=== PATIENT | female | born 1955 | race Caucasian/White ===

== ENCOUNTER 2017-06-28 15:48 | Emergency (ER) | payer BC ==
[~2017-06-28] VITALS: Ht 152.4 cm; Wt 86.2 kg
[2017-06-28 15:56] VITALS: BP 165/84
[2017-06-28] MEDS ORDERED: LIDOCAINE 1% INJ 50 ML MDV IJ ONE (16:10)
[2017-06-28] MEDS ORDERED: HYDROCODONE/APAP 5/325MG 1 EACH TABLET ONE (16:27)
[2017-06-28] MEDS ORDERED: LIDOCAINE 1%-EPI 1:100,000 20 ML VIAL ONE (16:27)
[2017-06-28] MEDS ORDERED: TDAP [DIPH/PERTUSSIS/TET] 0.5 ML VIAL IM ONE ×2 (16:28→16:30)
[2017-06-28] MEDS ORDERED: LIDOCAINE 1%-EPI 1:100,000 20 ML VIAL TP ONE (16:30)
[2017-06-28] MEDS ORDERED: HYDROCODONE/APAP 5/325MG 1 EACH TABLET PO ONE (16:30)
== END 2017-06-28 17:46 | disposition home or self-care (01) ==
LOC: ER 15:50
DX: S81.811A Laceration without foreign body, right lower leg, initial encounter (principal); M06.9 Rheumatoid arthritis, unspecified; D89.9 Disorder involving the immune mechanism, unspecified; W45.8XXA Other foreign body or object entering through skin, initial encounter; Y93.01 Activity, walking, marching and hiking; Y92.098 Other place in other non-institutional residence as the place of occurrence of the external cause; Y99.8 Other external cause status
CPT/HCPCS: 90715; A4606; A6402; J3490; Z7610